=== PATIENT | female | born 1975 | race Caucasian/White ===

== ENCOUNTER → 2017-07-07 10:21 | Outpatient (CLI) | payer BC | END | disposition home or self-care (01) | LOC: D.CN 10:21 → D.MRI 11:00 | DX: R55 Syncope and collapse (principal); R53.1 Weakness; R20.2 Paresthesia of skin; R51 Headache ==

== ENCOUNTER 2018-02-13 05:35 | Day surgery (SDC) | payer BC ==
[~2018-02-13] VITALS: Ht 172.7 cm; Wt 122.5 kg
--- NOTE | ~2018-02-13 | OP ---
PATIENT NAME: ALEXEY SHER MEDICAL RECORD: [id number] :71 LOCATION:D[facility]OPS ADMISSION DATE: SURGEON: DENNIS LARIOS MD DATE OF OPERATION: 02/13/2018 PREOPERATIVE DIAGNOSES: 1. Gallstones. 2. Gout. 3. Anxiety disorder. 4. GERD. 5. Hypertension. 6. Morbid obesity with a BMI of 42. POSTOPERATIVE DIAGNOSES: 1. Gallstones. 2. Gout. 3. Anxiety disorder. 4. GERD. 5. Hypertension. 6. Morbid obesity with a BMI of 42. PROCEDURE: Laparoscopic cholecystectomy. SURGEON: Dennis Larios MD DEAN OF ADMISSIONS: Eulalia Juan REPORT OF PROCEDURE: The patient's abdomen was prepped and draped in sterile fashion. A cutdown was made on the superior aspect of the umbilicus, 0 Vicryls were placed in the fascia bilaterally and the fascia was incised with a 15-blade. I then bluntly entered the peritoneal cavity and placed a 12-mm Su port. Under direct visualization, a 5 mm trocar was placed in the epigastrium and 2 more 5-mm trocars were placed in the right subcostal region. The gallbladder was grasped and elevated. There were some chronic inflammatory fatty adhesions and these were teased down carefully with blunt dissection. The cystic artery and cystic duct were dissected free and these were clipped proximally and distally and ligated in standard fashion. The gallbladder was taken off the liver bed using electrocautery and placed in the right upper quadrant. Any bleeding from the liver bed was treated with electrocautery. At this point, the ports and insufflation were then removed and the gallbladder was taken out through the umbilicus. The umbilical fascia was closed with interrupted 0 Vicryls times 3. The wounds were then irrigated out with normal saline and infused with 10 mL of 0.25% Marcaine with epinephrine. The skin incisions were all closed with subcutaneous 5-0 Monocryl and dressed appropriately. COMPLICATIONS: None. CONDITION: Stable. ANESTHESIA: General endotracheal and local. BLOOD LOSS: Minimal. TRANSINT:[id number] Voice Confirmation ID: [id number] DOCUMENT ID: [id number] OPERATIVE REPORT [id number] ALEXEY SHER DENNIS LARIOS MD at 1309 CC: SALOME ESPINAL [id number] DICTATION DATE: 02/13/18 0850 [employer] [employer]: 02/13/18 [id number] [facility] 02/13/18 [place] [id number] [place] [id number]
[~2018-02-13 05:35] MED LIST: ADIPEX-P37.5 M1 PO; BACLOFEN10 MG PO; BIOTIN5 MG PO; EFFEXOR XR75 MG PO; FUROSEMIDE20 MG PO; KLONOPIN0.5 MG PO; KLOR-CON 1010 MEQ PO; SLOW RELEASE I160 MG PO; ULTRAM50 MG PO; VITAMIN C1000 MG PO; ZOFRAN4 MG PO
[2018-02-13 05:56] LABS: BASOPHILS 0.3 % (0-2); EOSINOPHILS 1.4 % (0-7); HEMOGLOBIN 13.3 g/dL (12-16); IMMATURE GRANULOCYTES 0.1 % (0-5); LYMPHOCYTES 45.2 % (15-50); MCH 28.4 pg (26.0-34.0); MCHC 33.3 g/dL (31.0-37.0); MCV 85.5 fL (80.0-100.0); MEAN PLATELET VOLUME 9.9 fL (7.4-10.4); MONOCYTES 5.1 % (2-11); NEUTROPHILS 47.9 % (40-80); PLATELET COUNT 236 10x3/uL (130-400); RBC 4.68 10x6/uL (4.00-5.40); RDW 13.9 % (11.5-14.5); WBC 7.1 10x3/uL (4.8-10.8)
[2018-02-13 06:29] VITALS: BP 118/71; Ht 172.7 cm; Wt 122.5 kg
[2018-02-13 06:41] LABS: CALC OSMOLALITY 281 mosm/kg (275-300); CALCIUM 8.5 mg/dL (8.5-10.1); CARBON DIOXIDE 26.5 mmol/L (21.0-32.0); CHLORIDE - SERUM 104 mmol/L (98-107); CREATININE - SERUM 0.8 mg/dL (0.6-1.3); GLUCOSE 105 mg/dL (74-106); POTASSIUM - SERUM 3.8 mmol/L (3.5-5.1); SODIUM 141 mmol/L (136-145); UREA NITROGEN 14 mg/dL (7-18); eGFR NON AFRICAN AMERICAN 82 mL/min (90-120)
[2018-02-13] MEDS ORDERED: HYDROCODONE-APA1 TAB PO (08:44)
== END 2018-02-13 13:01 | disposition home or self-care (01) ==
LOC: D.OPS 05:35
PROVIDERS: Surgery
DX: K80.10 Calculus of gallbladder with chronic cholecystitis without obstruction (principal); M10.9 Gout, unspecified; F41.9 Anxiety disorder, unspecified; K21.9 Gastro-esophageal reflux disease without esophagitis; I10 Essential (primary) hypertension; E66.01 Morbid (severe) obesity due to excess calories; Z68.41 Body mass index [BMI] 40.0-44.9, adult; Z01.812 Encounter for preprocedural laboratory examination

== ENCOUNTER → 2019-07-04 07:18 | Outpatient (CLI) | payer BC ==
[2018-02-13 06:29] VITALS: BMI 41.1
[~2019-07-04 07:18] MED LIST changes: +HYDROCODONE-APA1 TAB PO
== END | disposition home or self-care (01) ==
LOC: D.NM 07:18
PROVIDERS: ATTEND Family Medicine
DX: R94.6 Abnormal results of thyroid function studies (principal)